=== PATIENT | male | born 1995 | race Caucasian/White ===

== ENCOUNTER 2017-05-18 18:12 | Emergency (ER) | payer BC ==
[~2017-05-18] VITALS: Ht 175.3 cm; Wt 68.4 kg
[2017-05-18 18:16] VITALS: BP 149/74
[2017-05-18] MEDS ORDERED: LIDOCARE1 EACH TP (19:52)
[2017-05-18] MEDS ORDERED: FLEXERIL10 MG PO (19:52)
[2017-05-18] MEDS ORDERED: MOTRIN800 MG PO (19:52)
== END 2017-05-18 20:29 | disposition home or self-care (01) ==
LOC: EME 18:12
DX: M54.5 Low back pain (principal); W18.30XA Fall on same level, unspecified, initial encounter; F17.200 Nicotine dependence, unspecified, uncomplicated
CPT/HCPCS: 72070; 72100; 99281; 99283; J1885

== ENCOUNTER 2018-02-20 20:18 | Emergency (ER) | payer BC ==
[~2018-02-20] VITALS: Ht 175.3 cm; Wt 70.2 kg
[~2018-02-20 20:18] MED LIST: FLEXERIL10 MG PO; LIDOCARE1 EACH TP; MOTRIN800 MG PO
[2018-02-21 00:46] LABS: CHLORIDE 103 mEq/L (99-109); POTASSIUM 3.9 mEq/L (3.7-5.4); SODIUM 140 mEq/L (136-147)
[2018-02-21 00:48] LABS: GLUCOSE 92 mg/dL (70-99)
[2018-02-21 00:52] LABS: GFR ESTIMATE (CALCULATED) > 59 mL/min/ (58.99-99999); UREA NITROGEN (BUN) 12 mg/dL (9-23)
[2018-02-21 00:59] LABS: HEMATOCRIT 46.6 % (38.0-50.0); HEMOGLOBIN 16.6 G/DL (12.5-16.6); MCH 29.6 PG (29.0-34.0); MCHC 35.6 G/DL (30.0-36.0); MCV 83.2 FL (86-99); RBC DIS.WIDTH-SD 36.4 % (39-53); WHITE BLOOD COUNT 6.1 K/uL (4.1-10.2)
[2018-02-21 01:31] LABS: APPEARANCE CLEAR ((CLEAR)); BILIRUBIN NEGATIVE; BLOOD NEGATIVE; COLOR YELLOW ((YELLOW)); GLUCOSE (STRIP) NEGATIVE; KETONES NEGATIVE; LEUKOCYTES NEGATIVE; NITRITE NEGATIVE; PROTEIN (STRIP) NEGATIVE; SPECIFIC GRAVITY 1.021 (1.000-1.030); UCUL ADDED? NO; UROBILINOGEN 0.2 MG/DL (0.2-1.0)
[2018-02-21 02:09] LABS: PLAT.SUFFICIENCY ADEQUATE; PLATELET COUNT 175 K/uL (156-360)
[2018-02-21] MEDS ORDERED: LEVSIN0.125 MG PO (03:09)
[2018-02-21] MEDS ORDERED: MOTRIN800 MG PO (03:09)
[2018-02-21] MEDS ORDERED: ZOFRAN4 MG PO (03:10)
[2018-02-21 03:21] VITALS: BP 122/78
== END 2018-02-21 03:22 | disposition home or self-care (01) ==
LOC: EME 20:18
PROVIDERS: Nurse Practitioner Family
DX: R10.31 Right lower quadrant pain (principal); D17.9 Benign lipomatous neoplasm, unspecified; F17.200 Nicotine dependence, unspecified, uncomplicated; Z86.718 Personal history of other venous thrombosis and embolism
CPT/HCPCS: 74177; 80048; 81003; 85027; 99281; 99284; J7120